=== PATIENT | male | born 1965 | race Caucasian/White ===

== ENCOUNTER 2022-03-30 00:57 | Day surgery (SDC) | payer OTHER, SELFPAY ==
[2022-03-17 08:39] VITALS: BMI 36.6
--- NOTE | 2022-03-17 08:44 | PC.NURSE ---
Report to the Outpatient Waiting Room, entrance under the green pavilion located off [facility], at time 0830 on date 03/30/22. Planned Procedure Time: 1030. Time changes happen often and if your time is changed the preop area will call you the afternoon before. - You and your visitor will be asked to self-screen and do not enter if you have any COVID symptoms. - Only one visitor is requested with a max of two and NO children visitors are allowed at this time. - The patient visitor may be requested to leave or wait in car when not with patient due to distancing restrictions. - A mask is optional within the hospital. Patients may have clear liquids (water, carbonated beverages, clear teas, apple juice) until 3 hours prior to surgery with a maximum of 20 ounces. - No food from midnight until time of surgery Take the following medications with a SIP of water the morning of surgery: AMLODIPINE, METOPROLOL Medications to discontinue per physician: VITAMINS Date to take last dose: 03/26/22 Please no make-up, nail hebrew, hairspray, perfume, deodorant, or body powder the day of surgery. No jewelry (including any body piercings) or valuables the day of surgery, leave them at home. Please take a shower or bath the night before, or the morning of, surgery with an antibacterial soap. Wear comfortable, loose fitting clothing. - Jewelry must be removed prior to entering the operating room. Rings and piercings that are not removed may be cut off. - The hospital will not accept responsibility for valuables. - Please leave all valuables, including medications, at home the day of surgery. If you are going home after surgery, a licensed gravel truck driver must drive you home. - NO public transportation without another adult if you receive anesthesia. - We recommend that an adult stay with you for 24 hours following discharge. - We also recommend that you do not drive, make important decision, drink alcoholic beverages, or take any drugs that were not prescribed by your health care provider for at least 24 hours after your discharge time. Follow any additional instructions given to you from your surgeon. If you or anyone in your household have experienced Covid symptoms in the past week, please notify your surgeon or the nurse liaison at the phone number below for possible testing. Telephone instructions given to PT - CHANCE DUNLAP and asked if any additional questions and then verbalized understanding. Patient advised to call surgeon office or pre surgery nurse liaison [phone] if any additional questions.
[2022-03-30] VITALS (9 sets, daily range): BP systolic 113–137; BP diastolic 68–85; PULSE 53–66; RESP 12–18; TEMP 36.5–36.9; O2SAT 93–100
[2022-03-30] MEDS: LACTATED RINGERS 1,000 ML 30 ML IV CONT ×2 (09:15→12:41)
[2022-03-30] MEDS: KETOROLAC 15 MG/ML VIAL (*BKC) IV PUSH (09:15)
[2022-03-30] MEDS: ACETAMINOPHEN 500 MG TABLET 1000 MG PO (09:15)
--- NOTE | 2022-03-30 09:17 | WPDANESEPPF ---
Anes - Initial Pre Proc Eval Procedure: Operation Date: 03/30/22 10:30 Proposed Procedures p Right Shoulder Arthroscopic Rotator Cuff Repair, Subacromial Decompression, Distal Clavicle Excision - Josue Cintron MD Date/Time: 03/30/22 09:17 Surgeon: Josue Cintron MD Pre Op Diagnosis: right shoulder rotator cuff tear Patient Data Age: 57 Gender: M Height: 1.83 m Weight: 122.5 kg Allergies Allergy/AdvReac Type Severity Reaction Status Date / Time amoxicillin Allergy Mild Hives Verified 03/30/22 08:10 Home Medications Medication Instructions Recorded Confirmed Type amlodipine 5 mg tablet 5 mg PO DAILY 01/21/22 03/17/22 History cyanocobalamin (vitamin B-12) 3,000 mcg PO DAILY 01/21/22 03/17/22 History 3,000 mcg capsule metoprolol succinate 200 mg 200 mg PO DAILY 01/21/22 03/17/22 History tablet,extended release 24 hr omeprazole magnesium 20 mg 20 mg PO DAILY 01/21/22 03/17/22 History tablet,delayed release (Prilosec OTC) Patient hx anesthesia problems: none Family hx anesthesia problems: none Results Review: All pre-operative results and documents have been reviewed as part of the pre-operative evaluation. [facility] Past Medical History Medical History (Updated 03/30/22 @ 09:17 by Sudhakar Nguyen MD) Hypertension Obesity Surgical History Surgical History (Updated 03/30/22 @ 09:18 by Sudhakar Nguyen MD) Hx of tonsillectomy Social History Social History Smoking status: Never smoker Smokeless tobacco user: chewing tobacco Alcohol intake: current Drinks per week: 4 Substance use: never Substance use type: does not use Lack of Transportation: No Lack of Food: Never True Current Housing: I Have Housing Concerned About Future Housing: No Difficulty Paying Gas/Electric Bills: No Difficulty Paying for Meds: No Currently Unemployed: No Education: High School Diploma/GED Difficulty w/ Childcare or Family Care: No Living arrangements: with family Spiritual care concerns: No Anes - Eval Final PreProcedure Day of Procedure 03/30/22 09:17 Patient weight: obese Heart: regular rate and rhythm Lungs: clear to auscultation Airway: Mallampati scale class II and special considerations poor opening Neurological: alert and oriented Last oral intake: >/= 8 hours ASA classification: III Emergent: no Anesthetic plan: proceed Anesthesia type and monitoring: general ETT and standard monitoring Results Review: All pre-operative results and documents have been reviewed as part of the pre-operative evaluation. Informed Consent: The patient's anesthetic plan and its attendant risks and benefits were discussed with the patient/family/POA. Questions were solicited and answers provided to the satisfaction of the patient/family/POA.
--- NOTE | 2022-03-30 10:00 | WPDHPUPDATE1 ---
History and Physical Update Update Date/Time: 03/30/22 10:00 History and Physical has been reviewed, including an updated exam of the patient. There are NO changes in the patient's condition. Risks, benefits, and alternatives have been discussed and questions answered. Patient agrees to proceed with procedure.
--- NOTE | 2022-03-30 10:22 | WPDANESPNB ---
Anes - Peripheral Nerve Block Date/Time: 03/30/22 10:22 I have discussed with the patient/family/POA the placement of a peripheral nerve block for post-operative pain management, including associated risks, benefits, complications, and side effects. Alternative methods of post-operative analgesia were detailed. Questions were solicited and answers provided to the satisfaction of the patient/family/POA. Time-Out: A pre-procedural Time-Out was completed immediately before starting the procedure and confirmed: Patient Identification, Site, Procedure, Patient Position and the Availability of Requisite Equipment. Clinical Indications: Acute post-operative pain management requested by the operative surgeon. Nerve Block Insertion Note Anes-nerve block: interscalene right Patient position: supine Skin prep: chlorhexidine Needle: 22 gauge, stimulating, insulated echogenic needle. Needle length: 50 mm Technique: ultrasound Injectate: bupivacaine 0.5% with epi 5 mcg/ml (30) and dexamethasone (mg) (8) Complications: none Procedure start time:: 1015 Procedure end time:: 1021
[2022-03-30] MEDS: ceFAZolin 3 GM/D5W 100 ML 100 ML IVPB (10:27)
--- NOTE | 2022-03-30 14:46 | W.PM.PROC2 ---
Procedure Note - Detailed Date of Procedure 03/30/22 Pre-op Diagnosis 1. Rotator cuff tear 2. Subacromial impingement 3. A/C joint arthritis. Post-op Diagnosis Other (1. Rotator cuff tear 2. Subacromial impingement 3. A/C joint arthritis.) Procedure Performed Right shoulder 1. Arthroscopic rotator cuff repair 2. Arthroscopic subacromial decompression 3. Arthroscopic distal clavicle excision. Surgeon Josue Cintron MD Assistant Facility Manager Della Ratliff PA-C Anesthesia General and Regional ( interscalene block) Findings The articular cartilage was normal. The biceps and anchor showed only minimal fraying. There was a small 30% articular tear of the anterior supraspinatus. This corresponded to the MRI. However the bursa side had a high-grade partial tear with only minimal remaining fibers on the articular side. The tears were completed with minimal debridement. The medium size tear was crescentic and repaired with 2 tunnels and 6 sutures. The rip stop technique was utilized with excellent anatomic congregation of tendon to bone. There was definite subacromial spurring and impingement treated with acromioplasty and arthritis at the AC joint was treated with distal clavicle excision. Description of Procedure Preoperative antibiotics were given. An interscalene block was administered in the preoperative area. The patient was bought brought to the operating room. A general anesthetic was administered. The patient was carefully positioned in the beach chair position. The head and neck were carefully positioned. The non operative extremity was also carefully positioned. The shoulder was prepped and draped in the usual sterile fashion. Examination was performed. Standard posterior and anterior arthroscopic portals were established. Inflow achieved with the arthroscopic pump using saline and epinephrine. The glenohumeral joint was carefully inspected. The articular cartilage, labrum, and biceps were normal. The subscapularis was intact. Low to mid grade articular tearing of the supraspinatus was observed. Attention was turned to the subacromial space. A complete bursectomy was performed. There was definite evidence of subacromial impingement. An acromioplasty was performed. There was a high-grade partial bursal side tear which was fairly wide about 1.5 cm. The tissue quality was very good. The tear configuration was carefully assessed. The tear was crescentic without retraction. It was easily completed with simple debridement. At this point, 2 tunnels were created at the rotator cuff. The ArthroTunneler technique was utilized. Three sutures were passed through each tunnel. All sutures were then passed through the cuff tissue. The rip stop technique was utilized. The sutures were tied arthroscopically. Attention was turned to the distal clavicle which was excised through a separate incision just anterior to the joint. The 70 degree scope was used to confirm complete resection of approximately 12 mm of clavicle. The arthroscopic instruments were removed. The wounds were closed with 3-0 Monocryl subcuticular suture and steri strips. There were no complications. A sling was applied and the patient brought to the recovery room. Physician pharmacist assistant, Della Ratliff PA-C, required for surgery; including patient positioning, draping, arthroscopic camera operation, maintaining instrument position, suture retrieval, wound closure, and dressing and sling placement. Estimated Blood Loss -20.0 Pathology None sent Complications No immediate complications Condition Stable Disposition PACU [facility] Billing Surgery - Charge Forward: Surgery Billing
== END 2022-03-30 15:05 | disposition home or self-care (01) ==
PROVIDERS: Visit Provider Orthopaedic Surgery
PROC: (CPT 29805; principal; 2022-03-30 10:30)
DX: M75.111 Incomplete rotator cuff tear or rupture of right shoulder, not specified as traumatic (principal); M75.41 Impingement syndrome of right shoulder; M19.011 Primary osteoarthritis, right shoulder; G89.18 Other acute postprocedural pain; I10 Essential (primary) hypertension; E66.9 Obesity, unspecified; Z68.36 Body mass index [BMI] 36.0-36.9, adult
CPT/HCPCS: 29827; 29826; 29824; 64415; A4565; A9270; J0330; J0690; J1100; J1170; J1885; J2250; J2405; J2704; J3010; J7120